=== PATIENT | male | born 1970 | race African-American/Black ===

== ENCOUNTER 2019-02-01 12:31 | Inpatient (IN) | payer MEDICARE ==
[2019-02-01] MEDS ORDERED: Labetalol HCl 100 MG/20 ML VIAL ONE (13:15)
[2019-02-01 13:23] LABS: #Basophils 0.1 thou/uL (0.0-0.2); #Eosinphils 0.2 thou/uL (0.0-0.7); #Lymphocytes 3.4 thou/uL (1.20-3.40); #Monocytes 0.6 thou/uL (0.11-0.59); #Neutrophils 4.4 thou/uL (1.40-6.50); %Basophils 0.8 % (0.0-1.0); %Eosinophils 2.9 % (0.0-10.0); %Lymphocytes 38.8 % (21.0-51.0); %Monocytes 6.8 % (0.0-10.0); %Neutrophils 50.7 % (42.0-75.0); Hemoglobin 14.6 g/dL (14.0-18.0); Mean Corpuscular HGB CONC 33.4 g/dL (32.0-36.0); Mean Corpuscular Hemoglobin 27.8 pg (27.0-31.0); Mean Corpuscular Volume 83.1 fL (78.0-98.0); Mean Platelet Volume 9.1 fL (7.4-10.4); Platelet Count 197 thou/uL (130-400); Red Blood Cell (RBC) Count 5.27 mill/uL (4.70-6.10); White Blood Cell (WBC) Count 8.7 thou/uL (4.8-10.8)
[2019-02-01 13:39] LABS: ALT (SGPT) 16 U/L (8-55); AST (SGOT) 19 U/L (5-34); Albumin 4.3 g/dL (3.5-5.0); Alkaline Phosphatase 71 U/L (40-150); Anion Gap 11 mmol/L (10-20); BUN (Urea Nitrogen) 7 mg/dL (8.9-20.6); Bilirubin, Total 1.5 mg/dL (0.2-1.2); Calc. Creatinine Clearance 0 mL/min (70-130); Calcium 9.2 mg/dL (7.8-10.44); Carbon Dioxide 24 mmol/L (22-29); Chloride 107 mmol/L (98-107); Estimated GFR-MDRD 78; Globulin 3.1 g/dL (2.4-3.5); Glucose 88 mg/dL (70-105); Lipase 12 U/L (8-78); Potassium 3.7 mmol/L (3.5-5.1); Protein, Total 7.4 g/dL (6.0-8.3); Sodium 138 mmol/L (136-145)
[2019-02-01] MEDS ORDERED: Acetaminophen 500 MG TAB ONE (14:24)
[2019-02-01] MEDS ORDERED: Furosemide 40 MG/4 ML VIAL ONE (14:25)
[2019-02-01] MEDS ORDERED: Nitroglycerin 2% Ointment 1 INCH/1 GM Packet ONE (14:25)
--- NOTE | 2019-02-01 14:30 | RAD ---
PA AND LATERAL CHEST RADIOGRAPH: History: Dyspnea. Body aches, headache, chest wall pain with inspiration. Comparison: None. FINDINGS: Dorsal column stimulating leads overlie the chest with the tip at the level of the T7 vertebral body. The cardiac silhouette is mildly enlarged. The pulmonary vasculature is also mildly increased. No co nsolidation or pleural fluid is seen. Osseous structures have a normal appearance. IMPRESSION: Cardiomegaly with suggestion of mild pulmonary vascular congestion. Correlation for mild CHF is recom mended. POS: [facility]
[2019-02-01 14:34] LABS: Acetaminophen Less than 6.0 mcg/mL (10.0-30.0); Alcohol Less than 10 mg/dL (Less than 10); Salicylate Less than 8.0 mg/dL (15.0-30.0)
[2019-02-01] MEDS ORDERED: Acetaminophen 325 MG TAB PO PRN (15:50)
[2019-02-01 16:45] LABS: Troponin I 0.024 ng/mL (< 0.028)
--- NOTE | 2019-02-01 19:25 | HP ---
CHIEF COMPLAINT: Shortness of breath. HISTORY OF PRESENT ILLNESS: The patient is a 48-year-old male without any past medical history, who recently started having some shortness of breath especially on exertion, which was associated with some dry cough. No chest pain. No fever. No chills. He denied any nausea or vomiting. He had some headaches in the left synagogue recently. He decided to come to the emergency room for further evaluation, and he was found to be in CHF while evaluated here and decision was made to admit him to the hospital for further diagnostic workup and therapeutic treatments. PAST MEDICAL HISTORY: Positive for nothing. PAST SURGICAL HISTORY: 1. Back surgery, fusion L3, L4, and L5. 2. Left hand surgery. FAMILY HISTORY: The patient does not remember his father. He was 8 when he his father . Mother is living and she is in good shape and good health. SOCIAL HISTORY: He used to drink a lot and quit approximately 3 to 4 months ago. He used to drink 12 packs of beer every day. Now, he drinks maybe couple of beers every few days. Smoker, still smokes 1 pack per day for a long time, many, many years. He does not use any illicit drugs. ALLERGIES: NONE. MEDICATIONS: None. REVIEW OF SYSTEMS: Negative all 14 systems except for those, which are positive in HPI. PHYSICAL EXAMINATION: VITAL SIGNS: Blood pressure is 133/72, pulse is 91, respiratory rate is 33. He is afebrile. HEENT: His head is atraumatic and normocephalic. Eyes are PERRLA. Sclerae are nonicteric. Oral mucosa is moist. NECK: Supple. No lymphadenopathy. Thyroid is not palpable. LUNGS: Breath sounds diminished at both bases with bilateral crackles at both bases. HEART: S1 and S2 normal. No S3, no S4. ABDOMEN: Soft, nontender, nondistended. EXTREMITIES: No clubbing, cyanosis, or edema. He has good pulses on both tibialis posterior and dorsalis pedis arteries similar bilaterally. NEUROLOGICAL: He is alert and oriented x4. There is no any motor or sensory deficits present. Cranial nerves are intact. LABORATORY DATA: Labs showed white count of 8.7, hemoglobin 14.6, hematocrit 43.8, platelet count is 197. Normal electrolytes. BUN of 7, creatinine 1.02, total bilirubin 1.5. BNP 996.4. Toxicology screen negative for alcohol, salicylates, and acetaminophen. IMAGING STUDIES: Chest x-ray personally reviewed by me showed increased interstitial markings and cardiomegaly. Electrocardiogram personally reviewed by me showed normal sinus rhythm with ventricular rate of 97 beats per minute, and left atrial enlargement and left ventricular enlargement. IMPRESSION: 1. New onset congestive heart failure, most likely related to longstanding hypertension. 2. Uncontrolled hypertension. 3. Elevated total bilirubin of unclear etiology with normal liver function tests. PLAN: Admission to telemetry floor, full admission. Condition fair. Activity, bedrest and bathroom privileges. IV Hep-Lock. Lasix 40 mg IV push every 12 hours, Coreg 3.125 mg twice a day. Echocardiogram to evaluate his LVEF. Aspirin 81 mg once a day, and troponins x3. Job ID: [id number]
[2019-02-01 20:05] VITALS: BMI 28.7
[2019-02-01] MEDS: Carvedilol 3.125 MG TAB PO SCH (23:20)
[2019-02-01 23:34] LABS: Troponin I 0.014 ng/mL (< 0.028)
[2019-02-02 05:26] LABS: Anion Gap 13 mmol/L (10-20); BUN (Urea Nitrogen) 10 mg/dL (8.9-20.6); Calc. Creatinine Clearance 139 mL/min (70-130); Calcium 8.8 mg/dL (7.8-10.44); Carbon Dioxide 23 mmol/L (22-29); Chloride 105 mmol/L (98-107); Estimated GFR-MDRD Greater than 90; Glucose 88 mg/dL (70-105); Potassium 3.3 mmol/L (3.5-5.1); Sodium 138 mmol/L (136-145)
[2019-02-02] MEDS: Furosemide 40 MG/4 ML VIAL SLOW IVP SCH ×2 (05:33→15:14)
[2019-02-02 05:47] LABS: Eosinophils 4 % (0-10); Hemoglobin 13.9 g/dL (14.0-18.0); Lymphocytes 51 % (21-51); MDiff Complete? YES; Mean Corpuscular HGB CONC 33.1 g/dL (32.0-36.0); Mean Corpuscular Hemoglobin 27.6 pg (27.0-31.0); Mean Corpuscular Volume 83.5 fL (78.0-98.0); Mean Platelet Volume 9.1 fL (7.4-10.4); Monocytes 4 % (0-10); Neutrophil 39 % (42-75); Platelet Count 175 thou/uL (130-400); Reactive Lymphocytes 2 % (0-10); Red Blood Cell (RBC) Count 5.03 mill/uL (4.70-6.10); White Blood Cell (WBC) Count 6.3 thou/uL (4.8-10.8)
[2019-02-02] MEDS: Carvedilol 3.125 MG TAB PO SCH ×2 (08:44→17:26)
[2019-02-02] MEDS: Enoxaparin Sodium 40 MG/0.4 ML SYRINGE SC SCH (08:44)
[2019-02-02] MEDS: Aspirin 81 mg Enteric Coated Tablet PO SCH (08:44)
[2019-02-02] MEDS ORDERED: Lisinopril 20 MG TAB PO SCH (10:45)
[2019-02-02 10:59] LABS: ALT (SGPT) 13 U/L (8-55); AST (SGOT) 13 U/L (5-34); Albumin 3.8 g/dL (3.5-5.0); Alkaline Phosphatase 63 U/L (40-150); Bilirubin, Direct 0.5 mg/dL (0.1-0.3); Bilirubin, Total 1.2 mg/dL (0.2-1.2); Protein, Total 6.4 g/dL (6.0-8.3)
--- NOTE | 2019-02-02 11:51 | PDOC.HOSPP ---
- Subjective Encounter Date: 02/02/19 Encounter Time: 10:50 Subjective: 48 y/o male with HTN but non compliant with medications admitted with acute onset of worsening exertional dyspnea. Feeling better with diuretic for acute CHF.Denied chest pain, fever, cough, nausea or vomiting. - Objective Vital Signs & Weight: Vital Signs (12 hours) Temp Pulse Resp BP Pulse Ox 02/02/19 08:00 97.9 F 87 18 173/74 H 94 L 02/02/19 03:00 97.7 F 80 16 154/67 H 97 Weight Weight 225 lb 6.4 oz I&O: 02/01/19 02/02/19 02/03/19 06:59 06:59 06:59 Intake Total 480 Output Total 650 Balance -170 Result Diagrams: 02/02/19 04:32 02/02/19 04:32 ROS - Medication Medications: Active Medications Generic Name Dose Route Start Last Admin Trade Name Freq PRN Reason Stop Dose Admin Aspirin 81 mg 02/02/19 09:00 02/02/19 08:44 Ecotrin PO 81 mg DAILY MEG Administration Carvedilol 3.125 mg 02/01/19 17:00 02/02/19 08:44 Coreg PO 3.125 mg BID-WM MEG Administration Enoxaparin Sodium 40 mg 02/02/19 09:00 02/02/19 08:44 Lovenox SC 40 mg 0900 MEG Administration Furosemide 40 mg 02/02/19 06:00 02/02/19 05:33 Lasix SLOW IVP 40 mg 0600,1400 MEG Administration - Exam awake alert Eye: PERRL, anicteric sclera ENT: normocephalic atraumatic Neck: supple, symmetric Heart: RRR, murmur present Heart - other findings: soft systolic murmur Respiratory: no wheezes, no rales, no ronchi Gastrointestinal: soft, non-tender, non-distended, normal bowel sounds Extremities: no cyanosis, no edema Neurological: CN's grossly intact, no focal deficits Musculoskeletal: normal tone, normal strength, no muscle wasting Psychiatric: normal affect, A&O x 3 Hosp A/P (1) Acute CHF (congestive heart failure) Code(s): I50.9 - HEART FAILURE, UNSPECIFIED Status: Acute (2) Uncontrolled hypertension Code(s): I10 - ESSENTIAL (PRIMARY) HYPERTENSION Status: Acute (3) Hyperbilirubinemia Code(s): E80.6 - OTHER DISORDERS OF BILIRUBIN METABOLISM Status: Acute (4) Hypokalemia Code(s): E87.6 - HYPOKALEMIA Status: Acute (5) Elevated troponin level Code(s): R74.8 - ABNORMAL LEVELS OF OTHER SERUM ENZYMES Status: Acute (6) Demand ischemia of myocardium Code(s): I24.8 - OTHER FORMS OF ACUTE ISCHEMIC HEART DISEASE Status: Acute - Plan Restart lisinopril. Continue coreg. Monitor vitals and restart amlodipine if needed. Awaiting Echo and Cardiology review. Follow renal function and bilirubin.
[2019-02-02] MEDS: Potassium Chloride 20 MEQ TAB PO SCH ×2 (12:27→15:14)
[2019-02-02 13:31] LABS: Amphetamine Not Detected (NotDetected); Barbiturates Screen Not Detected (NotDetected); Benzodiazepine Screen Not Detected (NotDetected); Cocaine Metabolite Screen Not Detected (NotDetected); Medtox Reader # READER 4; Methadone Not Detected (NotDetected); Methamphetamine Not Detected (NotDetected); Opiate Screen Not Detected (NotDetected); Oxycodone Screen Not Detected (NotDetected); Phencyclidine (PCP) Not Detected (NotDetected); THC/Cannabinoid Screen Not Detected (NotDetected); Tricyclic Screen Not Detected (NotDetected)
[2019-02-02 13:32] LABS: Medtox Control Line Valid? VALID (VALID)
[2019-02-02] MEDS: Lisinopril 20 MG TAB PO SCH (21:19)
[2019-02-03 05:48] LABS: ALT (SGPT) 14 U/L (8-55); AST (SGOT) 15 U/L (5-34); Albumin 4.2 g/dL (3.5-5.0); Alkaline Phosphatase 68 U/L (40-150); Anion Gap 13 mmol/L (10-20); BUN (Urea Nitrogen) 16 mg/dL (8.9-20.6); Bilirubin, Total 1.2 mg/dL (0.2-1.2); Calc. Creatinine Clearance 118 mL/min (70-130); Calcium 9.5 mg/dL (7.8-10.44); Carbon Dioxide 23 mmol/L (22-29); Chloride 106 mmol/L (98-107); Estimated GFR-MDRD 85; Globulin 2.9 g/dL (2.4-3.5); Glucose 90 mg/dL (70-105); Protein, Total 7.1 g/dL (6.0-8.3); Sodium 138 mmol/L (136-145)
[2019-02-03] MEDS: Furosemide 40 MG/4 ML VIAL SLOW IVP SCH ×2 (06:22→13:17)
[2019-02-03] MEDS: Carvedilol 3.125 MG TAB PO SCH (08:54)
[2019-02-03] MEDS: Aspirin 81 mg Enteric Coated Tablet PO SCH (08:54)
[2019-02-03] MEDS: Lisinopril 20 MG TAB PO SCH (08:54)
[2019-02-03] MEDS: Enoxaparin Sodium 40 MG/0.4 ML SYRINGE SC SCH (08:55)
--- NOTE | 2019-02-03 10:58 | CON ---
DATE OF CONSULTATION: HISTORY OF PRESENT ILLNESS: Adilson Brown is a 48-year-old black male with untreated hypertension who came to the emergency room for evaluation of exertional dyspnea. He also had episodes of PND. He denied any leg edema. He also denied any chest arm neck or jaw discomfort. Prior to admission, he did have an episode where he felt his heart beating rapidly. In the emergency room, chest x-ray revealed increased pulmonary vascularity. He had an elevated BNP and he is admitted for further care. PAST MEDICAL HISTORY: He has had hypertension, but is not on medication. He denies any history of diabetes or hypercholesterolemia. MEDICATIONS-SHOULD BE TAKING, BUT DOES NOT: 1. Lisinopril 30 b.i.d. 2. Amlodipine 10 daily. ALLERGIES: NONE. PAST SURGICAL HISTORY: Back surgery and left hand surgery. SOCIAL HISTORY: He continues to smoke one pack per day. He used to drink up to a 12-pack of beer every day, but 3 or 4 months ago cut back to several beers every few days. He works doing maintenance work. REVIEW OF SYSTEMS: A 12-point review of systems is otherwise unremarkable. PHYSICAL EXAMINATION: VITAL SIGNS: Blood pressure 173/74, pulse 87. HEENT: PERRL. NECK: Supple. CHEST: Clear. CARDIAC: S1 and S2 are normal without any S3 or S4. There is a 1/6 to 2/6 systolic murmur in the aortic area. Carotid upstrokes are normal without bruits. ABDOMEN: Normal bowel sounds without tenderness or organomegaly. EXTREMITIES: Reveal no clubbing, cyanosis, or edema. NEUROLOGIC: Grossly intact. LABORATORY DATA: EKG reveals normal sinus rhythm with left ventricular hypertrophy with QRS widening. Echocardiogram revealed an ejection fraction of 50% to 55% with moderate left atrial enlargement, moderate mitral regurgitation, moderate aortic regurgitation, and mild tricuspid regurgitation. Hemoglobin 13.9, hematocrit 42.0, white count 6300, platelets 175,000. Sodium 138, potassium 3.3, chloride 105, carbon dioxide 23, BUN 10, and creatinine 0.97. Troponin I up to 0.038. TSH is normal. BNP 996.4. Chest x-ray reveals cardiomegaly with increased pulmonary vascularity. IMPRESSION: 1. Acute on chronic diastolic heart failure. 2. Moderate aortic insufficiency, moderate mitral regurgitation. 3. Hypertension. 4. Smoker. 5. Episode of atrial tachycardia with aberrancy, with a heart rate of 100 per minute. PLAN: The patient will continue to be diuresed. I would continue with beta paris and titrate upward as needed. I do not feel any further evaluation is warranted for his atrial tachycardia with aberrancy other than treatment with beta paris and control of his blood pressure. Job ID: [id number] MTDD
[2019-02-03 12:11] VITALS: BP 131/62; TEMP 98.6
--- NOTE | 2019-02-05 14:40 | DIS ---
DATE OF ADMISSION: 02/01/2019 DATE OF DISCHARGE: 02/03/2019 PRIMARY CARE PHYSICIAN: Chepe Schimtt. DISCHARGE DIAGNOSES: 1. Acute on chronic diastolic heart failure. 2. Moderate aortic regurgitation. 3. Moderate mitral regurgitation. 4. Uncontrolled hypertension. 5. Tobacco abuse disorder. 6. Demand ischemia of the myocardium. 7. Elevated troponin level. 8. Hypokalemia. 9. Hyperbilirubinemia. CONSULTS: Cardiology. HOSPITAL COURSE: A 48-year-old male with known history of hypertension, but noncompliant with medications, admitted with acute onset of worsening exertional dyspnea, worsening shortness of breath, especially with exertion. The patient also reported palpitations. Evaluation revealed mild elevation in troponin as well as interstitial markings and cardiomegaly on the chest x-ray consistent with acute CHF. The patient was treated with diuretics while antihypertensives were restarted with improvement of symptoms. Cardiology consult was obtained and subsequent echocardiogram showed preserved systolic function, but moderate mitral and aortic regurgitations were noted. The patient improved and oxygen supplementation was weaned off. Blood pressure also was adequately controlled with instituted antihypertensives, and the patient was subsequently discharged home. PHYSICAL EXAMINATION: VITAL SIGNS: Temperature is 98.6, pulse is 68, respiratory rate is 14, SpO2 of 99% on room air, blood pressure is 131/62. GENERAL: Healthy-looking, middle-aged male, in no distress. Afebrile. Anicteric. Acyanotic. HEENT: Normocephalic, atraumatic. CARDIOVASCULAR: Regular rhythm and rate with normal heart sounds 1 and 2. Systolic murmur is noted. RESPIRATORY: Good air entry bilaterally with no obvious crackle or rhonchi or use of accessory muscles. GI: Full, soft, nontender, nondistended with normal bowel sounds. EXTREMITIES: Grossly normal looking atraumatic with no edema or erythema. DENTAL ASSISTANT: Conscious, alert and oriented x3 with appropriate mental status. Cranial nerves 2 through 12 are grossly intact. DISCHARGE DISPOSITION: Home. DISCHARGE CONDITION: Improved. DISCHARGE MEDICATIONS: 1. Aspirin 81 mg p.o. daily. 2. Carvedilol 3.125 mg p.o. b.i.d. 3. Furosemide 40 mg p.o. b.i.d. 4. Lisinopril 20 mg p.o. b.i.d. FOLLOWUP: The patient is to follow up with [facility] within a week. He is to follow up with cardiac rehab in 7 days as well. He is also to follow up with dairy farmworker, Dr. Chang Buchanan in 2 to 3 weeks. Discharge took more than 33 minutes. Job ID: [id number]
== END 2019-02-03 13:40 | disposition home or self-care (01) | DRG 292 ==
LOC: ERS 12:31 → ERHOLD 15:17 → 2NO 19:33
PROVIDERS: ADMIT Internal Medicine; ATTEND Internal Medicine
DX: I11.0 Hypertensive heart disease with heart failure (principal); I24.8 Other forms of acute ischemic heart disease; I50.33 Acute on chronic diastolic (congestive) heart failure; F17.210 Nicotine dependence, cigarettes, uncomplicated; E80.6 Other disorders of bilirubin metabolism; E87.6 Hypokalemia; R74.8 Abnormal levels of other serum enzymes; I08.0 Rheumatic disorders of both mitral and aortic valves; Z98.890 Other specified postprocedural states
CPT/HCPCS: 36415; 71046; 80048; 80053; 80076; 80306; 80307; 83690; 83735; 83880; 84443; 84484; 85025; 93005; 93306; 96374; 96375; J1650; J1940

== ENCOUNTER 2019-07-31 14:55 | Emergency (ER) | payer MEDICARE ==
--- NOTE | 2019-07-31 16:04 | RAD ---
XR Chest Pa Lat STANDARD HISTORY: Cough and fever COMPARISON: 02/01/2019 FINDINGS: The heart size is at upper limits of normal. The lungs are well expanded without focal area s of consolidation, pneumothorax or pleural effusions. Dorsal column stimulating leads are again seen. There are mild degenerative changes in the spine. IMPRESSION: No radiographic evidence of acute cardiopulmonary process.
== END 2019-07-31 16:32 | disposition home or self-care (01) ==
LOC: ERS 14:55
DX: J20.9 Acute bronchitis, unspecified (principal); I11.0 Hypertensive heart disease with heart failure; I50.9 Heart failure, unspecified; F17.210 Nicotine dependence, cigarettes, uncomplicated; Z79.899 Other long term (current) drug therapy
CPT/HCPCS: 71046

== ENCOUNTER 2020-08-26 07:02 | Observation (INO) | payer MEDICARE ==
[2020-08-26] MEDS ORDERED: Nitroglycerin 0.4 MG TAB 1 EACH ONE (07:16)
[2020-08-26] MEDS ORDERED: Aspirin Chewable 81 MG TAB ONE (07:16)
[2020-08-26] MEDS ORDERED: Furosemide 40 MG/4 ML VIAL ONE (07:16)
[2020-08-26] MEDS ORDERED: Nitroglycerin 2% Ointment 1 INCH/1 GM Packet ONE (07:16)
[2020-08-26 07:47] LABS: Hemoglobin 16.3 g/dL (14.0-18.0); Mean Corpuscular HGB CONC 33.3 g/dL (32.0-36.0); Mean Corpuscular Hemoglobin 28.1 pg (27.0-31.0); Mean Corpuscular Volume 84.3 fL (78.0-98.0); Mean Platelet Volume 9.5 fL (7.4-10.4); Platelet Count 180 thou/uL (130-400); RBC Distribution Width 13.1 % (11.5-14.5); White Blood Cell (WBC) Count 6.6 thou/uL (4.8-10.8)
[2020-08-26 07:59] LABS: ALT (SGPT) 12 U/L (8-55); AST (SGOT) 18 U/L (5-34); Albumin 4.3 g/dL (3.5-5.0); Alkaline Phosphatase 74 U/L (40-110); Anion Gap 16 mmol/L (10-20); BUN (Urea Nitrogen) 10 mg/dL (8.9-20.6); Bilirubin, Total 0.8 mg/dL (0.2-1.2); CK (CPK) 426 U/L (30-200); Calc. Creatinine Clearance 0 mL/min (70-130); Calcium 9.3 mg/dL (7.8-10.44); Carbon Dioxide 24 mmol/L (22-29); Chloride 103 mmol/L (98-107); Globulin 3.4 g/dL (2.4-3.5); Glucose 105 mg/dL (70-105); Lipase 32 U/L (8-78); Potassium 3.7 mmol/L (3.5-5.1); Protein, Total 7.7 g/dL (6.0-8.3); Sodium 139 mmol/L (136-145)
[2020-08-26 08:03] LABS: Eosinophils 5 % (0-10); Lymphocytes 45 % (21-51); MDiff Complete? YES; Monocytes 4 % (0-10); Neutrophil 38 % (42-75); RBC Morphology Normal; Reactive Lymphocytes 6 % (0-10)
[2020-08-26 08:20] LABS: CKMB 4.4 ng/mL (0-6.6)
[2020-08-26] MEDS ORDERED: Acetaminophen 500 MG TAB ONE (09:04)
[2020-08-26] MEDS ORDERED: Calcium Carbonate 500 MG ChewTAB PO PRN (10:39)
[2020-08-26] MEDS ORDERED: Ondansetron PF 4 MG/2 ML Vial IVP PRN (10:39)
[2020-08-26] MEDS ORDERED: Senokot S 8.6-50 MG TAB PO PRN (10:39)
[2020-08-26] MEDS ORDERED: Ondansetron ODT 4 MG TAB PO PRN (10:39)
[2020-08-26] MEDS ORDERED: Acetaminophen 325 MG TAB PO PRN (10:39)
[2020-08-26] MEDS ORDERED: Lisinopril 20 MG TAB PO SCH (10:45)
[2020-08-26] MEDS ORDERED: hydrALAZINE 20 MG/ML VIAL ONE (11:04)
[2020-08-26 11:43] LABS: Troponin I 0.042 ng/mL (< 0.028)
[2020-08-26 11:52] LABS: SARS-CoV-2 NAA Rapid Test Not Detected (NotDetected)
[2020-08-26 14:56] VITALS: BMI 27.6
[2020-08-26] MEDS: Furosemide 40 MG/4 ML VIAL SLOW IVP SCH (16:43)
[2020-08-26] MEDS: Carvedilol 3.125 MG TAB PO SCH (16:43)
[2020-08-26] MEDS: Nitroglycerin 2% Ointment 1 INCH/1 GM Packet TOP SCH ×2 (16:44→23:42)
[2020-08-26] MEDS ORDERED: hydrALAZINE 20 MG/ML VIAL SLOW IVP PRN (16:46)
[2020-08-26] MEDS ORDERED: cloNIDine 0.1 MG TAB PO PRN (16:46)
[2020-08-26] MEDS: hydrALAZINE 25 MG TAB PO SCH (19:52)
[2020-08-26] MEDS: Lisinopril 20 MG TAB PO SCH (19:53)
[2020-08-27 03:43] VITALS: TEMP 98.2
[2020-08-27 05:10] LABS: Anion Gap 15 mmol/L (10-20); BUN (Urea Nitrogen) 12 mg/dL (8.9-20.6); Calc. Creatinine Clearance 107 mL/min (70-130); Calcium 8.9 mg/dL (7.8-10.44); Carbon Dioxide 22 mmol/L (22-29); Chloride 104 mmol/L (98-107); Glucose 95 mg/dL (70-105); Magnesium 2.1 mg/dL (1.6-2.6); Potassium 3.7 mmol/L (3.5-5.1); Sodium 137 mmol/L (136-145)
[2020-08-27] MEDS: Furosemide 40 MG/4 ML VIAL SLOW IVP SCH (05:39)
[2020-08-27] MEDS: Nitroglycerin 2% Ointment 1 INCH/1 GM Packet TOP SCH ×2 (05:42→13:43)
[2020-08-27] MEDS: Lisinopril 20 MG TAB PO SCH (08:18)
[2020-08-27] MEDS: Carvedilol 3.125 MG TAB PO SCH (08:18)
[2020-08-27] MEDS: hydrALAZINE 25 MG TAB PO SCH (08:19)
[2020-08-27] MEDS ORDERED: Aspirin 81 mg Enteric Coated Tablet PO SCH (09:00)
[2020-08-27 13:21] VITALS: BP 149/65
[2020-08-27] MEDS ORDERED: FLU VACC QS2020-21(6MOS UP)/PF 60 MCG/0.5 ML SYRINGE IM ONE (15:30)
== END 2020-08-27 15:33 | disposition home or self-care (01) ==
LOC: ERS 07:02 → 2SW 09:30
PROVIDERS: ADMIT Internal Medicine; ATTEND Family Medicine
DX: I16.0 Hypertensive urgency (principal); I13.0 Hypertensive heart and chronic kidney disease with heart failure and stage 1 through stage 4 chronic kidney disease, or unspecified chronic kidney disease; N18.30 Chronic kidney disease, stage 3 unspecified; I50.33 Acute on chronic diastolic (congestive) heart failure; F17.210 Nicotine dependence, cigarettes, uncomplicated; I08.3 Combined rheumatic disorders of mitral, aortic and tricuspid valves; Z91.14 Patient's other noncompliance with medication regimen; Z23 Encounter for immunization; Z79.82 Long term (current) use of aspirin; Z79.899 Other long term (current) drug therapy; Z20.822 Contact with and (suspected) exposure to COVID-19
CPT/HCPCS: 0240U; 71045; 80048; 80053; 82550; 82553; 83690; 83735; 83880; 84484 ×2; 85025; 90662; 90732; 93005; 93798; 96376 ×2; G0008; G0009; G0378 ×3; 36415; 90471; J0360; J1940

== ENCOUNTER 2023-03-21 15:31 | Outpatient (CLI) | payer MEDICARE | END 2023-03-21 15:32 | disposition home or self-care (01) | LOC: RAD 15:31 | PROVIDERS: ATTEND Nurse Practitioner Family | DX: M25.561 Pain in right knee (principal); M25.461 Effusion, right knee ==

== ENCOUNTER 2025-04-23 00:29 | Emergency (ER) | payer OTHER, SELFPAY ==
[2025-04-23] MEDS ORDERED: Acetaminophen 500 MG TAB ONE (00:59)
[2025-04-23 01:03] LABS: #Basophils 0.05 10x3/uL (0.0-0.2); #Eosinophils 0.39 10x3/uL (0.0-0.7); #Monocytes 0.77 10x3/uL (0.11-0.59); #Neutrophils 10.24 10x3/uL (1.40-6.50); %Basophils 0.4 % (0.0-1.0); %Eosinophils 2.9 % (0.0-10.0); %Lymphocytes 14.8 % (21.0-51.0); %Monocytes 5.7 % (0.0-10.0); %Neutrophils 76.0 % (42.0-75.0); Hematocrit 44.8 % (42.0-52.0); Hemoglobin 14.3 g/dL (14.0-18.0); Mean Corpuscular Hemoglobin 25.4 pg (27.0-31.0); Mean Corpuscular Volume 79.7 fL (78.0-98.0); Platelet Count 237 10x3/uL (130-400); Red Blood Cell (RBC) Count 5.62 mill/uL (4.70-6.10); White Blood Cell (WBC) Count 13.47 10x3/uL (4.8-10.8)
[2025-04-23 01:16] LABS: Bacteria/HPF None Seen HPF (None Seen); CAUTI Indications for Culture Dysuria,urgency,freq; Glucose, Urine (Dipstick) Normal (Negative); Leukocyte 25 Leu/uL (Negative); Protein, Urine (Dipstick) Negative (Neg-Trace); RBC/HPF 0-3 HPF (0-3); Specific Gravity, Urine 1.011 (1.002-1.036)
[2025-04-23 01:19] LABS: ALT (SGPT) 15 U/L (Less than 45); AST (SGOT) 20 U/L (11-34); Albumin 4.1 g/dL (3.1-4.5); Alkaline Phosphatase 72 U/L (40-110); Anion Gap 13 mmol/L (10-20); BUN (Urea Nitrogen) 9 mg/dL (8.4-25.7); Bilirubin, Total 0.9 mg/dL (0.3-1.2); Calc. Creatinine Clearance 0 mL/min (70-130); Calcium 9.5 mg/dL (7.8-10.44); Carbon Dioxide 24 mmol/L (22-29); Chloride 107 mmol/L (98-107); Globulin 3.2 g/dL (2.4-3.5); Glucose 112 mg/dL (70-105); Potassium 3.8 mmol/L (3.5-5.1); Sodium 140 mmol/L (136-145)
[2025-04-23 01:20] LABS: Urine Culture Reflex No No
[2025-04-23 01:22] LABS: INR-International Normal Ratio 2.1; Prothrombin Time 23.6 sec (12.0-14.7)
[2025-04-23 01:23] LABS: PTT 39.6 sec (22.9-36.1)
[2025-04-23] MEDS ORDERED: Iopamidol 370 76% 100 ML VIAL ONE (09:35)
== END 2025-04-23 03:35 ==
LOC: ERS 00:29
DX: R10.A1 Flank pain, right side (principal); I25.10 Atherosclerotic heart disease of native coronary artery without angina pectoris; I11.0 Hypertensive heart disease with heart failure; I50.9 Heart failure, unspecified; F17.290 Nicotine dependence, other tobacco product, uncomplicated
CPT/HCPCS: 74177; 80053; 81001; 83605; 85025; 85610; 85730; 87040; 87086; 93005; 94760